=== PATIENT | female | born 1975 | race Caucasian/White ===

== ENCOUNTER 2021-06-13 04:34 | Observation (INO) ==
[2021-06-13] MEDS ORDERED: IOPAMIDOL 100 ML BOTTLE IV ONE (04:35)
[2021-06-13] MEDS ORDERED: KETOROLAC 15 MG/ML VIAL IV ONE (04:55)
[2021-06-13] MEDS ORDERED: ONDANSETRON 4 MG/2 ML VIAL IV ONE (04:55)
[2021-06-13 05:02] LABS: POC Blood Urea Nitrogen 20 mg/dL (6-20); POC CO2 23 mmol/L (22-30); POC Calcium, Ionized 1.14 mmEq/L (1.16-1.32); POC Chloride 101 mEq/L (96-108); POC Creatinine 0.6 mg/dL (0.6-1.2); POC Glucose, Random 176 mg/dL (70-105); POC Hematocrit 33 % (36-48); POC Potassium 3.5 mEql/L (3.3-5.1); POC Sodium 137 mEq/L (133-145)
[2021-06-13 05:47] LABS: Basophils # (Auto) 0.02 K/mcL (0.00-0.30); Basophils % (Auto) 0.1 % (0.0-2.0); Eosinophils # (Auto) 0 K/mcL (0.00-0.70); Eosinophils % (Auto) 0 % (0.0-7.0); Hematocrit 32.5 % (34.1-44.9); Hemoglobin 11.3 g/dL (11.2-15.7); Lymphocytes # (Auto) 1.09 K/mcL (1.50-4.80); Lymphocytes % (Auto) 6.1 % (15.5-49.0); Mean Corpuscular HGB Conc 34.8 g/dL (31.0-36.0); Mean Platelet Volume 9.2 fL (7.4-10.4); Monocytes # (Auto) 0.78 K/mcL (0.10-0.90); Monocytes % (Auto) 4.4 % (1.0-12.0); Neutrophils % (Auto) 89.4 % (38.0-78.0); Platelet Count 339 K/mcL (140-440); RBC 3.35 M/mcL (3.59-5.38); Red Cell Distribution Width 11.8 % (11.5-14.5); WBC 17.8 K/mcL (4.5-11.0)
[2021-06-13 05:58] LABS: ALT/SGPT 6 U/L (<40); AST/SGOT 10 U/L (<32); Albumin 4.1 gm/dL (3.2-5.2); Albumin/Globulin Ratio 1.5 (1.0-2.3); Alkaline Phosphatase 61 U/L (39-117); Bilirubin,Total 0.2 mg/dL (0.1-1.0); Blood Urea Nitrogen 17 mg/dL (6-20); Calcium 8.9 mg/dL (8.6-10.4); Carbon Dioxide 22 mmol/L (22-30); Chloride 101 mmol/L (96-108); Globulin 2.7 gm/dL (2.2-3.7); Glomerular Filtration Rate 108; Glucose 167 mg/dL (70-105)
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
[2021-06-13] MEDS ORDERED: morphine 4 MG/ML VIAL IV ONE ×2 (07:29→10:45)
[2021-06-13] MEDS ORDERED: cefTRIAXone 1 GM VIAL IV ONE (07:29)
[2021-06-13] MEDS ORDERED: metroNIDAZOLE 500 MG/100 ML BAG IV ONE (07:29)
[2021-06-13] MEDS ORDERED: LACTATED RINGERS 1,000 ML IV ONE (07:29)
--- NOTE | 2021-06-13 07:33 | Emergency Department Note ---
Course Vital Signs Vital signs: Vital Signs Temperature 97.7 F 06/13/21 04:37 Pulse Rate 82 06/13/21 04:37 Respiratory Rate 18 06/13/21 04:37 Blood Pressure 129/75 06/13/21 04:37 Pulse Oximetry (%) 98 06/13/21 04:37 Temperature 100.2 F H 06/13/21 12:23 Pulse Rate 76 06/13/21 12:23 Respiratory Rate 18 06/13/21 12:23 Blood Pressure 109/67 06/13/21 12:23 Pulse Oximetry (%) 96 06/13/21 12:23 MDM MDM Narrative Medical decision making narrative: I assumed care from Dr. Morocho at the change of shift. I evaluated the patient in person at 7:20 AM. I discussed the test results and need for surgery with her and her . They are agreeable. I discussed the patient's history examination and diagnostic findings with Dr. Armstrong. He will evaluate the patient in the emergency department. Lab Data Lab results reviewed: Yes I reviewed the patient's lab results. Result diagrams: 06/13/21 04:53 06/13/21 04:53 Labs: Lab Results 06/13/21 06/13/21 06/13/21 Range/Units 04:53 04:53 07:00 WBC 17.8 H (4.5-11.0) K/mcL RBC 3.35 L (3.59-5.38) M/mcL Hgb 11.3 (11.2-15.7) g/dL Hct 32.5 L (34.1-44.9) % POC Hct 33 L (36-48) % MCV 97.0 (80.0-100.0) fL MCH 33.7 (26.0-34.0) pg MCHC 34.8 (31.0-36.0) g/dL RDW 11.8 (11.5-14.5) % Plt Count 339 (140-440) K/mcL MPV 9.2 (7.4-10.4) fL Neut % (Auto) 89.4 H (38.0-78.0) % Lymph % (Auto) 6.1 L (15.5-49.0) % [place] % (Auto) 4.4 (1.0-12.0) % Eos % (Auto) 0 (0.0-7.0) % Baso % (Auto) 0.1 (0.0-2.0) % Lymph # (Auto) 1.09 L (1.50-4.80) K/mcL [place] # (Auto) 0.78 (0.10-0.90) K/mcL Eos # (Auto) 0 (0.00-0.70) K/mcL Baso # (Auto) 0.02 (0.00-0.30) K/mcL Absolute Neutrophils 15.93 H (1.80-8.00) K/mcL POC Sodium 137 (133-145) mEq/L Sodium 135 (133-145) mmol/L POC Potassium 3.5 (3.3-5.1) mEql/L Potassium 3.7 (3.3-5.1) mmol/L POC Chloride 101 (96-108) mEq/L Chloride 101 (96-108) mmol/L Carbon Dioxide 22 (22-30) mmol/L POC Total CO2 23 (22-30) mmol/L Anion Gap 12.0 (8.0-16.0) POC BUN 20 (6-20) mg/dL BUN 17 (6-20) mg/dL Creatinine 0.6 (0.6-1.1) mg/dL POC Creatinine 0.6 (0.6-1.2) mg/dL GFR Calculation 108 Glucose 167 H (70-105) mg/dL POC Glucose 176 H (70-105) mg/dL Calcium 8.9 (8.6-10.4) mg/dL POC WB Ioniz Calcium 1.14 L (1.16-1.32) mmEq/L Total Bilirubin 0.2 (0.1-1.0) mg/dL AST 10 (<32) U/L ALT 6 (<40) U/L Alkaline Phosphatase 61 (39-117) U/L Total Protein 6.8 (5.9-8.4) gm/dL Albumin 4.1 (3.2-5.2) gm/dL Globulin 2.7 (2.2-3.7) gm/dL Albumin/Globulin Ratio 1.5 (1.0-2.3) Urine Color Yellow Urine Appearance Clear (Clear) Urine pH 6.0 (5.0-9.0) Ur Specific [place] > 1.060 (1.000-1.035) Urine Protein Negative (Negative) mg/dL Urine Glucose (UA) Negative (Negative) mg/dL Urine Ketones 5 A (Negative) mg/dL Urine Occult Blood Negative (Negative) mg/dL Urine Nitrate Negative (Negative) Urine Bilirubin Negative (Negative) mg/dL Urine Urobilinogen Negative mg/dL Ur Leukocyte Esterase Negative (Negative) /uL Ur Culture Indicated? No ED POC Tests ED POC Tests: RANJEET - SARS Antigen Negative HCG POC Results Negative Discharge Plan Patient/Caregiver Discharge Instructions Pt seen by RATCHET SETTER/PA only: No Clinical Impression: Acute appendicitis with perforation and localized peritonitis Qualifiers: Appendicitis gangrene presence: without gangrene Appendicitis abscess presence: without abscess Qualified Code(s): K35.32 - Acute appendicitis with perforation and localized peritonitis, without abscess Patient Disposition: Xfer As Inpt ([facility]) Condition: Fair Discharge Date/Time: 06/13/21 12:26
--- NOTE | 2021-06-13 08:21 | Cat Scan Report ---
History: Right lower quadrant pain TECHNIQUE: Following injection of intravenous nonionic contrast the patient was scanned from above the diaphragm through the symphysis pubis. Sagittal and coronal reformats were created. The radiation exposure was limited using dose reduction technology. FINDINGS: The lung bases are clear. Small hiatus hernia is noted. The liver and spleen are normal in size and homogeneous. The gallbladder and bile ducts are normal. The adrenals are normal and symmetric. A 1.5 cm cyst is present in the upper pole the right kidney. No solid mass is present in either kidney. In the lower pole calyx of left kidney there is a 1 mm nonobstructing stone. Ureters are decompressed. Urinary bladder is normal. Scattered calcified plaques are present along the wall normal caliber abdominal aorta and common iliac arteries. The appendix is severely inflamed and distended. Measures up to 1.5 cm. There is moderate inflammation of the adjacent fat and the adjacent inferior wall of the cecum. There is no evidence of an abscess. Small amount of free fluid is present in the right lower quadrant and deep in the pelvis. No free intraperitoneal air is present. The small intestine is normal without evidence of obstruction or ileus. There are a couple noninflamed diverticula in the sigmoid colon. The uterus and right ovary appear normal. A 2.2 cm cyst is present in the left ovary. L5-S1 disc space is severely narrowed and there is moderate to severe stenosis of the neural foramina bilaterally at this level. IMPRESSION: Severe appendicitis Interpreted and Authenticated by: Yobani Gold 06/13/21
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
[2021-06-13 10:46] LABS: Appearance,Urine CLEAR (Clear); Bilirubin,Urine Negative (Negative); Color,Urine YELLOW; Culture Indicated,Urine No; Glucose,Urine (UA) Negative (Negative); Ketones,Urine 5 mg/dL (Negative); Leukocyte Esterase,Urine Negative /uL (Negative); Nitrate,Urine Negative (Negative); Protein,Urine Negative (Negative); Specific Gravity,Urine > 1.060 (1.000-1.035); Urine Blood Negative (Negative); Urobilinogen,Urine Negative
[2021-06-13] MEDS ORDERED: DEXAMETHASONE 10 MG/ML VIAL ONE (12:53)
[2021-06-13] MEDS ORDERED: MAGNESIUM SULFATE 2 GM/50 ML BAG IV ONE (12:53)
[2021-06-13] MEDS ORDERED: SUGAMMADEX SODIUM 200 MG/2 ML VIAL IV ONE (12:53)
[2021-06-13] MEDS ORDERED: fentaNYL 250 MCG/5 ML VIAL IV ONE (12:53)
[2021-06-13] MEDS ORDERED: LIDOCAINE HCL/PF 100 MG/5 ML SYRINGE IV ONE (12:53)
[2021-06-13] MEDS ORDERED: PROPOFOL 200 MG/20 ML VIAL IV ONE (12:53)
[2021-06-13] MEDS ORDERED: ONDANSETRON 4 MG/2 ML VIAL ONE (12:53)
[2021-06-13] MEDS ORDERED: KETAMINE 50 MG/ML Syringe (ANEST) IV ONE (12:53)
[2021-06-13] MEDS ORDERED: ROCURONIUM 10 MG/ML ML IV ONE (12:53)
[2021-06-13] MEDS ORDERED: diphenhydrAMINE 50 MG/ML VIAL IV PRN (13:36)
[2021-06-13] MEDS ORDERED: LACTATED RINGERS 250 ML IV PRN (13:36)
[2021-06-13] MEDS ORDERED: NALOXONE HCL 0.4 MG/ML VIAL IV PRN (13:36)
[2021-06-13] MEDS ORDERED: IPRATROPIUM/ALBUTEROL 3 ML AMPUL.NEB NEB PRN (13:36)
[2021-06-13] MEDS ORDERED: HYDROmorphone 0.5 MG/0.5 ML SYRINGE IV PRN (13:36)
[2021-06-13] MEDS ORDERED: PROMETHAZINE 25 MG/ML VIAL IV PRN (13:36)
[2021-06-13] MEDS ORDERED: KETOROLAC 30 MG/ML VIAL IV PRN (13:36)
[2021-06-13] MEDS ORDERED: MEPERIDINE 25 MG/ML VIAL IV PRN (13:36)
[2021-06-13] MEDS ORDERED: ONDANSETRON 4 MG/2 ML VIAL IV PRN (13:36)
[2021-06-13] MEDS ORDERED: ACETAMINOPHEN 1,000 MG/100 ML BAG IV ONE (13:36)
[2021-06-13] MEDS ORDERED: LACTATED RINGERS 1,000 ML IV SCH (13:45)
[2021-06-13] MEDS: fentaNYL 100 MCG/2 ML VIAL IV PRN ×3 (14:38→14:46)
[2021-06-13] MEDS ORDERED: ACETAMINOPHEN 650 MG/65 ML BAG IV PRN (14:46)
[2021-06-13] MEDS ORDERED: BUPIVACAINE W/EPI 0.5% 50 ML VIAL IJ ONE (14:54)
--- NOTE | 2021-06-13 15:06 | Brief Operative Note ---
Brief Operative Note Date of procedure: 06/13/21 Pre-op diagnosis: Acute Appendicitis Post-op diagnosis: other Procedure: Laparoscopic Appendectomy Grafts/Implants: No Anesthesia: GETA Findings: Gangrenous Non Ruptured Appendix with surrounding Phlegmon Complications: none Surgeon: Ciaran Armstrong Estimated blood loss (cc): 10 Specimens Removed/Pathology: other (appendix ) Condition: stable Disposition: PACU
[2021-06-13] MEDS: metroNIDAZOLE 500 MG/100 ML BAG IV SCH ×2 (16:20→21:24)
[2021-06-13] MEDS: HYDROmorphone 1 MG/ML SYRINGE IV PRN ×3 (16:21→21:23)
[2021-06-13] MEDS: NICOTINE 7 MG PATCH TOPICAL SCH (17:20)
[2021-06-13] MEDS: CIPROFLOXACIN 400 MG/200 ML BAG IV SCH (17:21)
[2021-06-13] MEDS: 0.9 % SODIUM CHLORIDE 10 ML SYRINGE IV SCH (21:24)
[2021-06-13] MEDS: DEXTROSE 5%-LR 1,000 ML IV SCH (22:52)
[2021-06-13] MEDS: oxyCODONE HCL 5 MG TABLET PO PRN (23:32)
[2021-06-14] MEDS: oxyCODONE HCL 5 MG TABLET PO PRN ×3 (03:23→12:42)
[2021-06-14] MEDS: metroNIDAZOLE 500 MG/100 ML BAG IV SCH ×3 (05:25→21:59)
[2021-06-14] MEDS: 0.9 % SODIUM CHLORIDE 10 ML SYRINGE IV SCH ×3 (05:26→22:45)
[2021-06-14] MEDS: HYDROmorphone 1 MG/ML SYRINGE IV PRN ×3 (06:31→21:58)
--- NOTE | 2021-06-14 07:17 | Operative Note ---
DATE OF OPERATION: 06/13/2021 PREOPERATIVE DIAGNOSIS: Acute appendicitis. POSTOPERATIVE DIAGNOSIS: Acute appendicitis. OPERATIVE PROCEDURE: Laparoscopic appendectomy. SURGEON: Ciaran Armstrong MD ANESTHESIA: General. PREOPERATIVE MEDICATION: Rocephin 1 gram IV, Flagyl 500 mg IV. INDICATIONS: The patient is a 46-year-old female who presented to the ER with a several-week history of intermittent right lower quadrant pain that had abated for some period of time and then returned roughly 24-48 hours prior to her ER presentation with severe discomfort in the right lower quadrant. She was seen in the Emergency Room. CT scan was obtained and findings of acute appendicitis with substantial periappendiceal inflammation and phlegmon were noted. There was no terrell evidence of rupture or perforation, but it was suspected. There was no abscess there. She was quite tender and I recommended surgery. All options were discussed with her at length, and risks, benefits, potential complications and alternative treatment options were all reviewed. This included, but was not limited to bleeding, infection, cosmetic dissatisfaction, abnormal scarring, potential need for conversion to an open procedure, drain placement, potential need for secondary procedures, the risk of appendiceal stump leak, injury to surrounding bowel structures and other concerns as well as the option to not undergo surgery and to attempt nonoperative management utilizing IV antibiotics and observation. This was all discussed with her at length and she was aware that she had all these different options available to her. She wished to undergo surgery, which was our recommendation as well. PROCEDURE IN DETAIL: The patient was taken to the OR and placed supine on the OR table, placed under general anesthesia and intubated. Bilateral SCDs were applied and pressure sensitive areas were carefully padded. Her arms were tucked at her side. She was positioned comfortably on the OR table by the entire OR team and the abdomen was widely prepped and draped in a sterile fashion. Procedure began with access of the peritoneal cavity in the right upper abdomen away from her midline scar. This was done with a 0-degree 5 mm scope and a 5 mm Visiport trocar without difficulty. Once we obtained peritoneal access, pneumoperitoneum was obtained with high-flow CO2 insufflation. We then examined our area of access to make sure there is no evidence of injury; none was seen. We then changed out the 0-degree scope to 30-degree scope and placed our remaining trocars. This included a 5 mm periumbilical trocar and then a 5 mm left lower quadrant trocar as well. The camera was then resited to the periumbilical location. We changed out the 5 mm right upper abdominal trocar for a 12 mm trocar to facilitate stapler introduction. Next, we placed the patient in a somewhat Trendelenburg position, airplaned towards the left side. We could see a large heap of bowel draped over the base of the cecum and the initial portion of the right colon. This was gently and bluntly dissected down and away utilizing both a Kittner dissection and also dissection with the suction pipe or steam fitter furnace installer. Gradually, we were able to arrive at what appeared to be a phlegmon surrounding a loop of small bowel at the terminal ileum adjacent to and sitting directly on top of the appendix. This was gradually and bluntly dissected away to reveal a densely inflamed, somewhat gangrenous appendix without obvious perforation or rupture and there was no pus seen. Gradually, we were able to fully identify and delineate the entire length of the appendix and the appendiceal tip, which had been very difficult to discern initially. We were able to mobilize it up off the underlying retroperitoneum and then grasp it. The appendix was somewhat corkscrewed upon itself and therefore, I took the mesoappendix down in sequential sections, utilizing the 35 mm endovascular stapler, which gradually freed up the entire appendix. It was dilated all the way down to the appendiceal base, which was circumferentially dissected free and then transected with a single firing of the 35 mm endovascular stapler just directly above its junction appointment the cecum. Great care was taken to make sure that the terminal ileum and the ileocecal valve were down and away and were not in any way, shape or form compromised in any visible manner. The appendix was thus removed in its entirety, was placed in an EndoCatch and then taken out through the 12 mm right upper abdominal trocar site without difficulty. It was sent to pathology for permanent inspection. We resited the trocar and then reestablished pneumoperitoneum and then irrigated the area out gently. There was some bleeding from the mesoappendix and some Surgicel was applied as a topical hemostatic and this appeared to seal things nicely along the staple line of the mesoappendix itself. The appendiceal stump looked very good. The staple line was intact and there was no bleeding here and the tissue looked very well vascularized and healthy. We irrigated out a final time. I elected to not leave a drain. We removed the right upper abdominal 12 mm trocar and then I went ahead and closed the fascia with the Emir-Kenyon fascial closure device utilizing an 0 Vicryl stitch. This was done without difficulty as well and under direct vision. Next, we removed our remaining trocars after relieving pneumoperitoneum and these were done under direct vision to make sure there was no active bleeding, none was seen. The incisions were then closed with interrupted 3-0 Vicryl and 4-0 Monocryl sutures, respectively. Steri-Strips and sterile dressings were applied. The patient was awakened, extubated, and transferred to PACU in satisfactory condition. No apparent complications. Sponge and instrument counts were correct. Findings were discussed above. Please note, no cautery or thermal energy was used in the performance of this case. BW:monster Job ID: [id number] Doc ID: [id number] Ciaran Armstrong M.D. [facility]ITALMigel
[2021-06-14 07:28] LABS: Hematocrit 28.2 % (34.1-44.9); Hemoglobin 9.4 g/dL (11.2-15.7); Mean Cell Volume 99.3 fL (80.0-100.0); Mean Corpuscular HGB Conc 33.3 g/dL (31.0-36.0); Mean Platelet Volume 9.3 fL (7.4-10.4); Platelet Count 285 K/mcL (140-440); RBC 2.84 M/mcL (3.59-5.38); WBC 13.8 K/mcL (4.5-11.0)
[2021-06-14 07:44] LABS: Blood Urea Nitrogen 9 mg/dL (6-20); Calcium 8.1 mg/dL (8.6-10.4); Carbon Dioxide 24 mmol/L (22-30); Chloride 105 mmol/L (96-108); Glomerular Filtration Rate 114; Glucose 140 mg/dL (70-105)
[2021-06-14] MEDS: CIPROFLOXACIN 400 MG/200 ML BAG IV SCH ×2 (07:45→20:42)
[2021-06-14] MEDS: DEXTROSE 5%-LR 1,000 ML IV SCH ×2 (10:16→17:36)
[2021-06-14] MEDS ORDERED: KETOROLAC 15 MG/ML VIAL IV ONE (12:02)
[2021-06-14] MEDS: NICOTINE 7 MG PATCH TOPICAL SCH (12:41)
--- NOTE | 2021-06-14 13:06 | General Surgery Progress Note ---
SUBJECTIVE Subjective Patient information: Note initiated : 06/14/21 at 1130 Service Date, if different from initiated Date: [] Patient: Verena Day 46 y/o F admitted on for Lower Rt Abd Pain. Chief Complaint: [POD #1 Lap Appendectomy] Feeling well this am. Passing gas and overall well, having some issues with pain control Constitutional Vitals: Vital Signs Temp Pulse Resp BP Pulse Ox 98.2 F 73 18 101/58 95 06/14/21 11:34 06/14/21 11:34 06/14/21 11:34 06/14/21 11:34 06/14/21 11:34 Period Temp Pulse Resp BP Sys/Paez Pulse Ox Last 24 Hr 98.2 F-100.2 F 72-95 9-19 94-124/53-74 87-100 Intake and Output 06/13/21 06/14/21 06/14/21 21:59 05:59 13:59 Intake Total 1999 431 1540 Output Total 900 550 400 Balance 1100 -119 1140 Weight 150 lb Intake & Output: Intake & Output 06/13/21 06/14/21 06/14/21 21:59 05:59 13:59 Intake Total 1999 431 1540 Output Total 900 550 400 Balance 1100 -119 1140 Weight 150 lb Intake: IV 280 835 7674 Dextrose 5%-Lactated Ringers 1, 1000 000 ml @ 100 mls/hr IV .Q10H MATIAS Rx#:[id number] Lactated Ringers 1,000 ml @ 20 131 mls/hr IV .Q24H MATIAS Rx#: [id number] Oral 200 240 IV - Manual Only 1600 Output: Void Amount 850 550 400 Estimated Blood Loss 50 Other: Urine Appearance Clear Clear Urine Color Dark Yellow Bright Yellow Urine Odor Normal General appearance: no acute distress Head Head exam: Present atraumatic and normocephalic Respiratory Respiratory exam: Present normal respiratory exam Cardiovascular Cardiovascular exam: Present normal rate and rhythm GI/Abdominal Additional comments: soft and non distended, minimally tender, dressings dry A/P Narrative A/P Narrative: POD #1 Lap Appendectomy Doing Well Advance Diet Saline lock IVF Home today or tomorrow AM depending on pain control issues Time Spent With Patient Time: Total time spent is greater than 50% in coordination of care (as documented) at patient's floor/unit and/or counseling patient:
[2021-06-14] MEDS: HYDROCODONE/APAP 7.5/325MG TABLET PO PRN (19:35)
[2021-06-14] MEDS ORDERED: DEXTROSE 5%-LR 1,000 ML IV SCH (21:15)
[2021-06-15] MEDS: HYDROCODONE/APAP 7.5/325MG TABLET PO PRN ×3 (00:02→08:10)
[2021-06-15] MEDS: metroNIDAZOLE 500 MG/100 ML BAG IV SCH (04:58)
[2021-06-15] MEDS: HYDROmorphone 1 MG/ML SYRINGE IV PRN (05:01)
[2021-06-15] MEDS: 0.9 % SODIUM CHLORIDE 10 ML SYRINGE IV SCH (05:02)
[2021-06-15 07:05] LABS: Hematocrit 26.7 % (34.1-44.9); Hemoglobin 8.8 g/dL (11.2-15.7); Mean Cell Volume 99.6 fL (80.0-100.0); Mean Platelet Volume 9.1 fL (7.4-10.4); Platelet Count 273 K/mcL (140-440); RBC 2.68 M/mcL (3.59-5.38); Red Cell Distribution Width 12.1 % (11.5-14.5); WBC 11.2 K/mcL (4.5-11.0)
[2021-06-15 07:33] LABS: Blood Urea Nitrogen 6 mg/dL (6-20); Calcium 8.4 mg/dL (8.6-10.4); Carbon Dioxide 23 mmol/L (22-30); Chloride 107 mmol/L (96-108); Glomerular Filtration Rate 108; Glucose 109 mg/dL (70-105)
[2021-06-15] MEDS: CIPROFLOXACIN 400 MG/200 ML BAG IV SCH (09:22)
--- NOTE | 2021-06-15 09:44 | General Surgery Progress Note ---
SUBJECTIVE Subjective Patient information: Note initiated : 06/15/21 at 9:35 am Service Date, if different from initiated Date: [] Patient: Verena Day 46 y/o F admitted on 06/13/21 for Lower Rt Abd Pain. Chief Complaint: [Post Appendectomy ] Constitutional Vitals: Vital Signs Temp Pulse Resp BP Pulse Ox 97.2 F 82 20 138/79 98 06/15/21 07:15 06/15/21 03:32 06/15/21 07:15 06/15/21 07:15 06/15/21 07:15 Period Temp Pulse Resp BP Sys/Paez Pulse Ox Last 24 Hr 97.2 F-99.1 F 73-83 14-20 95-138/56-79 92-98 Intake and Output 06/14/21 06/15/21 06/15/21 21:59 05:59 13:59 Intake Total 1300 600 Output Total 250 Balance 1050 600 Weight 149 lb 3 oz Intake & Output: Intake & Output 06/14/21 06/15/21 06/15/21 21:59 05:59 13:59 Intake Total 1300 600 Output Total 250 Balance 1050 600 Weight 149 lb 3 oz Intake: IV 1300 200 Dextrose 5%-Lactated Ringers 1, 1000 000 ml @ 100 mls/hr IV .Q10H MATIAS Rx#:[id number] Oral 400 Output: Urine Catheter Amount 250 Other: Urine Appearance Clear Urine Color Bright Yellow # Voids 4 # Bowel Movements 0 General appearance: no acute distress Exam: patient dressed and sitting at bedside awaiting discharge to go Respiratory Respiratory exam: Present normal respiratory exam; Absent respiratory distress A/P Narrative A/P Narrative: POD #2 Lap Appendectomy Feels well clinically and wanting discharge Home today with follow up in clinic next week with re check H/H in coming days Clinic follow up as needed and in 1-2 weeks Time Spent With Patient Time: Total time spent is greater than 50% in coordination of care (as documented) at patient's floor/unit and/or counseling patient:
--- NOTE | 2021-06-15 10:39 | EKG ---
[facility] Test Date: 2021-06-13 Pat Name: Verena Day Department: ED Room: Gender: Female Career Advisor: NONA : 1975 Requested By: Obi North Order Number: [id number] Reading MD: Puneet Hernández Measurements Intervals [place] Rate: 76 P: 22 [place]: 156 QRS: 53 QRSD: 92 T: 56 QT: 432 QTc: 486 Interpretive Statements SINUS RHYTHM ANTEROSEPTAL Q WAVES Electronically Signed On 06-15-2021 10:39:15 PDT by Puneet Hernández /store/M0/[id number]/[email or web address]/[id number]
--- NOTE | 2021-06-15 10:58 | Surgical Pathology Report ---
Histology Microscopic Diagnosis Specimen A- APPENDIX, APPENDECTOMY: --- ACUTE APPENDICITIS WITH SEROSITIS. (DMT) Procedural Impression Acute appendicitis. Gross Description Received in formalin labeled with the patient information and designated as appendix, is a 11.2 cm in length by up to 1.5 cm in diameter noble-romero appendix with up to 1.8 cm of attached yellow-romero adipose tissue. The proximal margin is received with out sammi or cautery present. Noble-romero exudate is present on the exterior of the specimen with the majority near the distal end of the specimen. Plate Roller portions submitted in two cassettes. (KGW:kmt) Electronically Signed Puneet Perez MD, FCAP Electronically Signed 06/15/2021 10:57
--- NOTE | 2021-06-20 13:54 | Discharge Summary ---
DATE OF ADMISSION: 06/13/2021 DATE OF DISCHARGE: 06/15/2021 ADMITTING DIAGNOSIS: Acute appendicitis. DISCHARGE DIAGNOSIS: Acute appendicitis. PROCEDURE: Laparoscopic appendectomy on 06/13/2021. ADMITTING PHYSICIAN: Ciaran Armstrong M.D. INDICATIONS FOR ADMISSION: The patient is a 46-year-old female who presented to the emergency room on 06/13/2021 with findings consistent with acute appendicitis and CT scan was confirmatory. We were asked to see her in consultation. We did and recommended surgery. HOSPITAL COURSE: The patient was admitted to the hospital and brought directly to the operating room where she underwent a laparoscopic appendectomy that went well, the results of which are dictated as a separate procedure note. Procedures: Lap Appendectomy 06/13/21 She did well following this but was having pain control issues on 06/14/2021 and, of note, is on chronic narcotics at home due to unrelated issues, but this appeared to be playing some role in her ability to be comfortable and adequately treated post-procedurally. Because of her discomfort, we elected to have her stay another day. She gradually became more active and was felt to be ready for discharge by 06/15/2021. DISPOSITION: Patient was discharged home on 06/15/2021 with plan for clinic followup. HOSPITAL COMPLICATIONS: None apparent. BW:teo Job ID: [id number] Doc ID: [id number] Ciaran Armstrong M.D. MTDD
== END 2021-06-15 10:10 | disposition home or self-care (01) ==
LOC: ED 04:34 → SUR 12:24 → MEDSUR 12:24 → SUR 12:26 → MEDSUR 15:26
PROVIDERS: ADMIT Surgery Surgical Critical Care; ATTEND Surgery Surgical Critical Care